=== PATIENT | male | born 1995 | race Caucasian/White ===

== ENCOUNTER → 2017-11-14 | Outpatient (CLI) | payer BC ==
--- NOTE | 2017-11-14 12:55 | Diagnostic Imaging Report ---
INDICATION: Testicular pain. FINDINGS: The right testicle measures 5.6 x 3.2 x 2.9 cm and the left testicle measures 5.1 x 2.4 x 4.0 cm. Both testes demonstrate a homogeneous echotexture. No discrete testicular mass is identified. There is blood flow to both testes. The epididymides appear to be unremarkable. There is a varicocele on the right inferior to the testicle. No hydrocele is detected. IMPRESSION: 1. No evidence of testicular mass or vascular compromise. 2. Right-sided varicocele. No other abnormalities are seen. Dictated by: Dictated on workstation # [id number]
== END ==
LOC: RAD 11:37
PROVIDERS: ATTEND Nurse Practitioner Family
DX: I86.1 Scrotal varices (principal)
CPT/HCPCS: 76870